=== PATIENT | male | born 1960 | race African-American/Black ===

== ENCOUNTER 2017-04-19 13:56 | Inpatient (IN) | payer MEDICARE, OTHER ==
[~2017-04-19] VITALS: Ht 177.8 cm; Wt 81.6 kg
[~2017-04-19 13:56] MED LIST: ASPIRIN81 MG ORAL; BENZTROPINE MESY2 MG ORAL; CARVEDILOL12.5 MG ORAL; CARVEDILOL25 MG ORAL; CRANBERRY450 M4 PO; DOCUSATE SODIU100 MG ORAL; FLOMAX0.4 MG ORAL; FOLIC ACID1 MG ORAL; FUROSEMIDE40 MG ORAL; HYDRALAZINE HCL50 MG ORAL; LEVAQUIN500 MG ORAL; LIPITOR20 MG ORAL; MILK OF MA400 MG/51 ORAL; MULTIVITAMINS1 EA13 ORAL; NORVASC5 MG ORAL; OMEPRAZOLE20 M3 ORAL; POTASSIUM CHLO10 ME2 PO; PRINIVIL20 MG ORAL; RENVELA0.8 GM ORAL; RENVELA800 MG ORAL; RISPERDAL2 MG ORAL; SENNA8.6 M2 PO; TYLENOL325 MG ORAL; UTI-STAT L3875 MG/31 PO; VANCOMYCIN1 GM/2502 IVPB; VITAMIN C500 M1 ORAL; ZOSYN 3.373.375 GM/1 IVPB; ZYPREXA10 MG ORAL; ZYPREXA5 MG ORAL
[2017-04-19 14:14] VITALS: BP 117/57
[2017-04-19] MEDS ORDERED: HEPARIN SO5000 UNIT2 SUBQ (14:14)
[2017-04-19] MEDS ORDERED: ZANTAC150 MG ORAL (14:14)
--- NOTE | 2017-04-19 14:39 | Emergency Room Report ---
History of Present Illness General Chief Complaint: Male Urogenital Problems Source: Patient Present Illness HPI [id number] sent from SNF for "urinary incontinence." Patient known schizophrenic, not providing additional HPI, mumbling History of urinary incontinence, sepsis PMD Zarrabi states unable to urinate, unable to place conde at SNF Allergies: Coded Allergies: No Known Allergies (Unverified , 01/28/15) Patient History Past Medical History: see triage record, old chart reviewed Past Surgical History: none, unable to obtain Pertinent Family History: none, unable to obtain Social History: Denies: alcohol use, drug use, smoking Immunizations: UTD Reviewed Nursing Documentation: PMH: Agreed, PSxH: Agreed Nursing Documentation-PMH Past Medical History: No History, Except For Hx Cardiac Problems: Yes - hyperlipidemia, heart failure, cardiomyopathy Hx Hypertension: Yes Hx COPD: Yes Hx Cancer: No Hx Gastrointestinal Problems: Yes - liver cirrhosis Hx Neurological Problems: Yes - encephalopathy Hx Cerebrovascular Accident: Yes Hx Dysphasia: Yes Review of Systems All Other Systems: negative except mentioned in HPI Physical Exam Vital Signs Date Time Temp Pulse Resp B/P Pulse Ox O2 Delivery O2 Flow Rate FiO2 04/19/17 13:50 98.2 61 18 117/57 98 Room Air Sp02 EP Interpretation: reviewed, normal General Appearance: normal inspection, well appearing, no apparent distress, alert, GCS 15, non-toxic Head: normocephalic, atraumatic Eyes: bilateral eye EOMI, bilateral eye PERRL ENT: normal ENT inspection, hearing grossly normal, normal voice Neck: normal inspection, full range of motion, supple, no bony tend Respiratory: normal inspection, lungs clear, normal breath sounds, no respiratory distress, no retraction, no wheezing Cardiovascular #1: regular rate, rhythm, no edema Gastrointestinal: normal inspection Genitourinary: no CVA tenderness Musculoskeletal: normal inspection, back normal, normal range of motion, Radha' s Sign negative Neurologic: normal inspection, alert, oriented x3, responsive, 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 nml as tested, motor strength/tone normal, speech normal Psychiatric: normal inspection, judgement/insight normal, mood/affect normal Skin: normal inspection, normal color, no rash Medical Decision Making Diagnostic Impression: Primary Impression: Dysuria Additional Impressions: UTI (urinary tract infection) Qualified Codes: N30.01 - Acute cystitis with hematuria Incontinence Qualified Codes: R32 - Unspecified urinary incontinence BPH (benign prostatic hyperplasia) Qualified Codes: N40.1 - Benign prostatic hyperplasia with lower urinary tract symptoms; R39.14 - Feeling of incomplete bladder emptying ER Course Dysuria/UTI with known BPH We cant pass Conde here either Patient had urine collected, grossly infected Empiric Abx given Blood, Urine Cx pending No leuks. Afebrile. VS otherwise stable Not systemically ill Dr Barr requesting admit, med/surg Needs Urology Cx for conde placement for BPH EKG Diagnostic Results Rate: normal Rhythm: NSR ST Segments: no acute changes ASA given to the pt in ED: No Rhythm Strip Diag. Results EP Interpretation: yes Rate: 57 Rhythm: NSR, no PVC's, no ectopy Last Vital Signs Date Time Temp Pulse Resp B/P Pulse Ox O2 Delivery O2 Flow Rate FiO2 04/19/17 14:14 98.2 61 18 117/57 98 Room Air Status: improved Disposition: HOME, SELF-CARE Condition: Serious Referrals: ROWENA BARR (PCP) RICKY PENNINGTON M.D. Apr 19, 2017 14:39
[2017-04-19 14:47] LABS: APPEARANCE,URINE SLIGHTLY CLOUDY; KETONES,URINE NEGATIVE (NEGATIVE); LEUKOCYTE ESTERASE ,URINE 3+ (NEGATIVE); NITRITE,URINE POSITIVE (NEGATIVE); PH,URINE 7 (4.5-8.0); PROTEIN,URINE 1+ (NEGATIVE); UROBILINOGEN,URINE NORMAL MG/DL (0.0-1.0)
[2017-04-19 14:49] LABS: EOSINOPHILS % (AUTO) 7.7 % (0.0-3.0); LYMPHOCYTES % (AUTO) 44.2 % (20.0-45.0); MEAN CORPUSCULAR HGB CONC 32.3 G/DL (32.0-36.0); MEAN CORPUSCULAR VOLUME 93 FL (80-99); MEAN PLATELET VOLUME 6.1 FL (6.5-10.1); NEUTROPHILS % (AUTO) 37.6 % (45.0-75.0); PLATELET COUNT 262 K/UL (150-450); RED BLOOD COUNT 3.94 M/UL (4.70-6.10); RED CELL DISTRIBUTION WIDTH 12.2 % (11.6-14.8); WHITE BLOOD COUNT 3.5 K/UL (4.8-10.8)
[2017-04-19 14:50] LABS: BASOPHILS % (AUTO) 1.5 % (0.0-2.0)
[2017-04-19 14:55] LABS: BACTERIA,URINE MODERATE /HPF; RBC,URINE 0-2 /HPF (0 - 0); SQUAMOUS EPITHELIAL CELL,UR FEW /LPF (NONE/OCC)
[2017-04-19 15:01] LABS: ALANINE AMINOTRANSFERASE 13 U/L (3-41); ANION GAP 9 (5-15); ASPARTATE AMINO TRANSFERASE 11 U/L (5-40); CALCIUM 11.1 mg/dL (8.6-10.2); CARBON DIOXIDE 30 mEQ/L (20-30); CHLORIDE 100 mEQ/L (98-107); CREATININE 1.2 mg/dL (0.7-1.2); GLOMERULAR FILTRATION RATE > 60 mL/min (>60); HEMOLYSIS 3; POTASSIUM 4.4 mEQ/L (3.4-4.9); SODIUM 139 mEQ/L (135-145); TOTAL PROTEIN 8.2 g/dL (6.6-8.7)
[2017-04-19 15:11] LABS: CKMB 1.8 ng/mL (< 6.7)
[2017-04-19 15:15] VITALS: BP 125/76
[2017-04-19] MEDS ORDERED: Piperacillin/Tazobactam 3.375 GM in NS 110 ML IVPB ONE (15:15)
[2017-04-19] MEDS ORDERED: Zosyn 3.375gm inj ONE (15:25)
[2017-04-19] MEDS ORDERED: Miralax 17gm pkt ORAL PRN (15:30)
[2017-04-19] MEDS ORDERED: DuoNeb 0.5-3(2.5)mg/3ml neb HHN PRN (15:30)
[2017-04-19] MEDS ORDERED: Morphine Sulfate 2mg/ml Inj IVP PRN (15:30)
[2017-04-19] MEDS ORDERED: Nitroglycerin Subl 0.4mg tab (Bottle Of 25) SL PRN (15:45)
[2017-04-19] MEDS ORDERED: Vancomycin 1.5 GM/D5W 250ML IVPB ONE ×2 (16:00→18:00)
[2017-04-19 16:15] VITALS: BP 120/66
--- NOTE | 2017-04-19 16:20 | Diagnostic Imaging Report ---
Indication: SOB Technique: One view of the chest Comparison: none Findings: Lungs and pleural spaces are clear. Heart size is borderline enlarged . Previous demonstrated right perihilar infiltrate is no longer evident Impression: No acute process
--- NOTE | 2017-04-19 16:59 | Diagnostic Imaging Report ---
Indication: PAIN flank pain, elevated renal function tests Technique: Grayscale and duplex images of the kidneys, retroperitoneum, and bladder were obtained. Comparison:None Findings: Right kidney measures 10.7 cm in length. Left kidney measures 12.6 cm in length. Both kidneys demonstrate increased echogenicity. There is mild hydronephrosis bilaterally. There are bilateral renal cysts. Normal inferior vena cava. Bladder is thickwalled and somewhat trabeculated. Impression: Mild bilateral hydronephrosis, etiology not demonstrated Bilateral echogenic kidneys, consistent with medical renal disease Somewhat thickwalled trabeculated bladder, may indicate chronic bladder outlet obstruction Incidental finding of bilateral renal cysts.
[2017-04-19 17:15] VITALS: BP 117/80
--- NOTE | 2017-04-19 18:58 | History and Physical ---
History of Present Illness General Date patient seen: Apr 19, 2017 Reason for Hospitalization: Male Urogenital Problems Present Illness HPI 57 year old male with hx of CVA, schizophrenia, halfway resident, [facility] for evaluation of dysuria and hematuria. Staff at the facility were not able to put a conde and she had hematuria. pt cant give any history and all information is obtained from the chart. Allergies: Coded Allergies: No Known Allergies (Unverified , 01/28/15) Medication History Scheduled Ascorbic Acid* (Vitamin C*), 500 MG ORAL DAILY, (Reported) Benztropine Mesylate* (Benztropine Mesylate*), 2 MG ORAL BID, (Reported) Carvedilol* (Carvedilol*), 25 MG ORAL EVERY 12 HOURS, (Reported) Cran/Vitc/Mannose/Inulin/Brom (Uti-Stat Liquid), 3,875 MG PO BID, (Reported) Cranberry Fruit Concentrate (Cranberry), 450 MG PO Q12HR, (Reported) Docusate Sodium* (Docusate Sodium*), 100 MG ORAL TWICE A DAY, (Reported) Folic Acid* (Folic Acid*), 1 MG ORAL DAILY, (Reported) Heparin Sod (Porcine) (Heparin Sodium*), 5,000 UNITS SUBQ EVERY 12 HOURS, ( Reported) Hydralazine Hcl* (Hydralazine Hcl*), 50 MG ORAL EVERY 6 HOURS, (Reported) Levofloxacin* (Levaquin*), 500 MG ORAL DAILY Magnesium Hydroxide* (Milk Of Magnesia*), 30 ML ORAL bed, (Reported) Multivitamin with Minerals (Multivitamins with Minerals), 1 TAB ORAL DAILY, ( Reported) Olanzapine* (Zyprexa*), 5 MG ORAL DAILY, (Reported) Omeprazole (Omeprazole), 20 MG ORAL DAILY, (Reported) Ocwabnomcggl-Lfmv-Ctrizuis,Iso (Zosyn 3.375 Gm Pre Mix-Bag), 3.375 GM IVPB EVERY 8 HOURS Ranitidine Hcl* (Zantac*), 150 MG ORAL DAILY, (Reported) Sennosides (Senna), 8.6 MG PO QHS, (Reported) Sevelamer Carbonate (Renvela), 800 MG ORAL QHS, (Reported) Tamsulosin HCl (Flomax), 0.4 MG ORAL DAILY Vancomycin Hcl/D5w (Vancomycin-D5w 1 G/250 Ml), 1 GM IVPB Q24H Scheduled PRN Acetaminophen (Tylenol), 650 MG ORAL Q6H PRN for For Pain, (Reported) Patient History Healthcare decision maker N Resuscitation status Advanced Directive on File Past Medical/Surgical History Past Medical/Surgical History: (1) Incontinence (2) Cerebrovascular accident, old (3) Liver cirrhosis Review of Systems All Other Systems: negative except mentioned in HPI Physical Exam General Appearance: no apparent distress Lines, tubes and drains: central line, PICC Neck: non-tender, normal alignment Respiratory/Chest: chest wall non-tender, lungs clear Breasts: no masses Cardiovascular/Chest: normal peripheral pulses Abdomen: normal bowel sounds, non tender Genitourinary/Rectal: normal genital exam Last 24 Hour Vital Signs Date Time Temp Pulse Resp B/P Pulse Ox O2 Delivery O2 Flow Rate FiO2 04/19/17 17:23 98.2 60 18 117/80 100 Room Air 04/19/17 17:15 60 18 117/80 100 Room Air 04/19/17 16:15 58 14 120/66 100 Room Air 04/19/17 15:15 57 13 125/76 100 Room Air 04/19/17 14:14 98.2 61 18 117/57 98 Room Air 04/19/17 13:50 98.2 61 18 117/57 98 Room Air Laboratory Tests Test 04/19/17 14:30 White Blood Count 3.5 K/UL (4.8-10.8) L Red Blood Count 3.94 M/UL (4.70-6.10) L Hemoglobin 11.8 G/DL (14.2-18.0) L Hematocrit 36.5 % (42.0-52.0) L Mean Corpuscular Volume 93 FL (80-99) Mean Corpuscular Hemoglobin 30.0 PG (27.0-31.0) Mean Corpuscular Hemoglobin Concent 32.3 G/DL (32.0-36.0) Red Cell Distribution Width 12.2 % (11.6-14.8) Platelet Count 262 K/UL (150-450) Mean Platelet Volume 6.1 FL (6.5-10.1) L Neutrophils (%) (Auto) 37.6 % (45.0-75.0) L Lymphocytes (%) (Auto) 44.2 % (20.0-45.0) Monocytes (%) (Auto) 9.0 % (1.0-10.0) Eosinophils (%) (Auto) 7.7 % (0.0-3.0) H Basophils (%) (Auto) 1.5 % (0.0-2.0) Urine Color Yellow Urine Appearance Slightly cloudy Urine pH 7 (4.5-8.0) Urine Specific [place] 1.010 (1.005-1.035) Urine Protein 1+ (NEGATIVE) H Urine Glucose (UA) Negative (NEGATIVE) Urine Ketones Negative (NEGATIVE) Urine Occult Blood Negative (NEGATIVE) Urine Nitrite Positive (NEGATIVE) H Urine Bilirubin Negative (NEGATIVE) Urine Urobilinogen Normal MG/DL (0.0-1.0) Urine Leukocyte Esterase 3+ (NEGATIVE) H Urine RBC 0-2 /HPF (0 - 0) H Urine WBC 10-15 /HPF (0 - 0) H Urine Squamous Epithelial Cells Few /LPF (NONE/OCC) Urine Bacteria Moderate /HPF (NONE) H Sodium Level 139 mEQ/L (135-145) Potassium Level 4.4 mEQ/L (3.4-4.9) Chloride Level 100 mEQ/L (98-107) Carbon Dioxide Level 30 mEQ/L (20-30) Anion Gap 9 (5-15) Blood Urea Nitrogen 20 mg/dL (7-23) Creatinine 1.2 mg/dL (0.7-1.2) Estimat Glomerular Filtration Rate > 60 mL/min (>60) Glucose Level 79 mg/dL (74-106) Calcium Level 11.1 mg/dL (8.6-10.2) H Total Bilirubin 0.3 mg/dL (0.0-1.2) Aspartate Amino Transf (AST/SGOT) 11 U/L (5-40) Alanine Aminotransferase (ALT/SGPT) 13 U/L (3-41) Alkaline Phosphatase 60 U/L (40-129) Creatine Kinase MB 1.8 ng/mL (< 6.7) Total Protein 8.2 g/dL (6.6-8.7) Albumin 4.1 g/dL (3.5-5.2) Globulin 4.1 g/dL Albumin/Globulin Ratio 1.0 (1.0-2.7) Height (Feet): 5 Height (Inches): 10.00 Weight (Pounds): 180 Medications Current Medications Medications (Trade) Dose Ordered Sig/Olivier Route PRN Reason Start Time Stop Time Status Last Admin Dose Admin Acetaminophen (Tylenol) 650 mg Q4H PRN ORAL T>100.5 04/19/17 15:30 05/19/17 15:29 Albuterol/ Ipratropium 3 ml 3 ml Q4H PRN HHN Shortness of Breath 04/19/17 15:30 04/24/17 15:29 Carvedilol (Coreg) 25 mg EVERY 12 HOURS ORAL 04/19/17 21:00 05/19/17 20:59 Cefepime HCl 2 gm/ Dextrose 110 ml @ 220 mls/hr Q12HR@0800,2000 IV 04/19/17 20:00 04/26/17 19:59 Heparin Sodium (Porcine) (Heparin 5000 units/ml) 5,000 units EVERY 12 HOURS SUBQ 04/19/17 21:00 05/19/17 20:59 Morphine Sulfate (Morphine Sulfate) 2 mg Q4H PRN IVP Moderate Pain (Pain Scale 4-6) 04/19/17 15:30 04/26/17 15:29 Nitroglycerin (Ntg) 0.4 mg Q5MIN X 3 DOSES PRN SL Prn Chest Pain 04/19/17 15:45 05/19/17 15:44 Olanzapine (ZyPREXA) 5 mg DAILY ORAL 04/20/17 09:00 05/20/17 08:59 Ondansetron HCl (Zofran) 4 mg Q6H PRN IVP Nausea & Vomiting 04/19/17 15:30 05/19/17 15:29 Phenazopyridine HCl (Pyridium) 100 mg DAILYPRN PRN ORAL dysuria 04/19/17 15:30 05/19/17 15:29 Polyethylene Glycol (Miralax) 17 gm DAILYPRN PRN ORAL Constipation 04/19/17 15:30 05/19/17 15:29 Sennosides (Senokot) 8.6 mg QHS ORAL 04/19/17 21:00 05/19/17 20:59 Tamsulosin HCl (Flomax) 0.4 mg DAILY ORAL 04/20/17 09:00 05/20/17 08:59 Temazepam (Restoril) 15 mg HSPRN PRN ORAL Insomnia 04/19/17 21:00 04/26/17 20:59 Vancomycin HCl 1 ea 1 ea DAILY PRN MISC . 04/19/17 15:45 05/19/17 15:44 Vancomycin HCl/ Dextrose (Vancomycin 1.5gm/D5W 250ml) 250 ml @ 125 mls/hr ONCE ONCE IVPB 04/19/17 18:00 04/19/17 19:59 Vancomycin HCl/ Dextrose (Vancomycin/D5W) 275 ml @ 183.3 mls/ hr Q12HR@0600,1800 IVPB 04/20/17 06:00 04/25/17 05:59 Assessment/Plan Problem List: (1) Dysuria ICD Codes: R30.0 - Dysuria SNOMED: 27442147 (2) Cerebrovascular accident, old ICD Codes: Z86.73 - Personal history of transient ischemic attack (TIA), and cerebral infarction without residual deficits SNOMED: 859237733 (3) BPH (benign prostatic hyperplasia) ICD Codes: N40.0 - Benign prostatic hyperplasia without lower urinary tract symptoms SNOMED: 101855524, [id number] Qualifiers: Qualified Codes: N40.1 - Benign prostatic hyperplasia with lower urinary tract symptoms; R39.14 - Feeling of incomplete bladder emptying (4) Liver cirrhosis ICD Codes: K74.60 - Liver cirrhosis SNOMED: 28790832 Assessment/Plan Urology evaluation symptomatic treatment check urine ROWENA ALVA Apr 19, 2017 18:58
[2017-04-19 20:00] VITALS: BP 135/57
[2017-04-19] MEDS: Carvedilol 25mg Tab ORAL SCH (21:49)
[2017-04-19] MEDS: Cefepime HCl 2 GM in D5W 110 ML IV SCH (21:50)
[2017-04-19] MEDS: Heparin 5000 units/ml inj SUBQ SCH (21:51)
--- NOTE | 2017-04-19 23:00 | Consultation ---
DATE OF CONSULTATION: 04/19/2017 UROLOGY CONSULTATION ATTENDING/CONSULTING PHYSICIAN: Darrian Barr M.D. CHIEF COMPLAINT/HISTORY OF PRESENT ILLNESS: I was asked by Dr. Barr to evaluate this 57-year-old gentleman regarding history of urinary incontinence as well as inability of staff to pass a catheter. Briefly, the patient was sent from a care home facility for urinary incontinence. Apparently, he had a history of the same and staff was unable to pass a catheter at his SNF. As such, he was transferred here and I was asked to evaluate the patient. On evaluation here, apparently the patient had evidence of urinary tract infection, he was admitted, and placed on antibiotics. The patient is schizophrenic and cannot provide any useful information. Most of the information is gathered from the chart. PAST MEDICAL HISTORY: 1. Schizophrenia. 2. Urinary incontinence. PAST SURGICAL HISTORY: Unknown. MEDICATIONS: Please see the chart for current medications and administration details. Briefly, the patient is receiving Flomax, vancomycin, and cefepime among other medications. ALLERGIES: No known drug allergies. SOCIAL HISTORY: Unobtainable. FAMILY HISTORY: Unobtainable. REVIEW OF SYSTEMS: A 12-system review of systems cannot be done as the patient cannot provide any useful information. PHYSICAL EXAMINATION: GENERAL: The patient is an older gentleman, awake and alert, but not apparently oriented, in no obvious distress. HEENT: NC/AT. EOMI. Oropharynx is clear. NECK: Supple. Full range of motion. CHEST: Within normal limits. ABDOMEN: Soft, nontender, and nondistended. EXTREMITIES: Warm and well perfused. No cyanosis, clubbing, or edema. BACK: No CVA tenderness to percussion. NEUROLOGIC: Grossly nonfocal outside of inability to interact appropriately. GENITOURINARY: Reveals circumcised male phallus with bilateral descended testes and cord structures. There is no masses or tenderness to palpation. LABORATORY DATA: White blood cell count 3.5, hematocrit 36.5, and platelets 262,000. PT 11.1, INR 1.1, and PTT 29. Sodium 139, potassium 4.4, chloride 100, bicarbonate 30, BUN 20, creatinine 1.2, glucose 79, and calcium is 11.1. LFTs within normal limits. Urinalysis, specific gravity 1.010 and pH 7.0. Dip test notable for positive nitrites, 1+ protein, and 3+ leukocyte esterase. Microanalysis, 10 to 15 white blood cells per high-power field and moderate bacteria seen. Urine culture is pending. DIAGNOSTIC IMAGING: Renal ultrasound with mild bilateral hydronephrosis. The bladder is thick-walled and somewhat trabeculated, which may indicate chronic outlet obstruction. There are bilateral renal cysts seen. Chest x-ray, no acute process. ASSESSMENT AND PLAN: In summary, the patient is a 57-year-old schizophrenic gentleman with a history of urinary incontinence. He was sent for evaluation of the same here. Apparently, urinalysis here reveals evidence of urinary tract infection. His creatinine is normal as are his other laboratories. Diagnostic imaging with ultrasound reveals mild bilateral hydronephrosis and a thick-walled bladder consistent with a possible bladder outlet obstruction. Physical exam is essentially unremarkable outside of schizophrenia. Today at the bedside, I attempted multiple times to pass a 14 and 16-Vietnamese coude catheter into the patient's bladder, but met with resistance in the bulbar urethra consistent with a possible stricture. Multiple attempts at passing a filiform were also met with resistance in the same area and I was unsuccessful in gaining entry into the bladder. It appears that the patient has a urethral stricture, which likely is longstanding. This has likely resulted in a urinary tract infection and as a result of the irritation from an infection, incontinence. The patient's kidney function is within normal limits and the bladder is thick-walled consistent with straining against a stricture. As I was unable to gain entry into the bladder, our next options would include cystoscopy or suprapubic catheter placement. Given that the patient is able to urinate and that he can be treated with antibiotics and there is no evidence of massive retention or renal insufficiency from this process, I will defer this for the moment and allow placement of a condom catheter. We should continue antibiotics. Once the patient is discharged, we can arrange for outpatient cystoscopy to evaluate his stricture and to formulate a plan from there. Doing so would entail obtaining consent from whoever the patient's [id number] is. Thank you for allowing me to participate in the care of this unfortunate gentleman. Please do not hesitate to contact me for any questions that you may further have regarding his care. I will be happy to see him with you as needed. Americo Betancourt M.D. DR: MELANIE JOB#: [id number] CC:
[2017-04-20] VITALS: BP 124/63
[2017-04-20 04:00] VITALS: BP 108/63
[2017-04-20] MEDS ORDERED: Vancomycin 1 GM in D5W 275 ML IVPB SCH (06:00)
[2017-04-20] MEDS: Cefepime HCl 2 GM in D5W 110 ML IV SCH ×2 (08:34→19:58)
[2017-04-20] MEDS: Tamsulosin 0.4mg cap ORAL SCH (08:38)
[2017-04-20] MEDS: Carvedilol 25mg Tab ORAL SCH ×2 (08:42→19:59)
[2017-04-20 08:57] VITALS: BP 125/65
[2017-04-20] MEDS: Heparin 5000 units/ml inj SUBQ SCH ×2 (09:52→20:00)
[2017-04-20 12:00] VITALS: BP 126/81
--- NOTE | 2017-04-20 13:08 | Infectious Diseases Prog Note ---
Assessment/Plan Assessment/Plan Id consult dictated # [id number] Subjective Allergies: Coded Allergies: No Known Allergies (Unverified , 01/28/15) Objective Vital Signs Last 24 Hour Vital Signs Date Time Temp Pulse Resp B/P Pulse Ox O2 Delivery O2 Flow Rate FiO2 04/20/17 08:57 97.8 63 18 125/65 100 Room Air 04/20/17 08:42 63 108/63 04/20/17 04:00 97.5 63 20 108/63 100 Room Air 04/20/17 00:00 97.7 66 20 124/63 99 Room Air 04/19/17 21:49 73 135/57 04/19/17 20:00 97.2 73 20 135/57 98 Room Air 04/19/17 17:23 98.2 60 18 117/80 100 Room Air 04/19/17 17:15 60 18 117/80 100 Room Air 04/19/17 16:15 58 14 120/66 100 Room Air 04/19/17 15:15 57 13 125/76 100 Room Air 04/19/17 14:14 98.2 61 18 117/57 98 Room Air 04/19/17 13:50 98.2 61 18 117/57 98 Room Air Height (Feet): 5 Height (Inches): 10.00 Weight (Pounds): 180 Microbiology Date/Time Source Procedure Growth Status 04/19/17 14:30 Urine,Clean Catch Urine Culture - Preliminary Gram Negative Bacillus 1 Resulted Laboratory Tests Test 04/19/17 14:30 White Blood Count 3.5 K/UL (4.8-10.8) L Red Blood Count 3.94 M/UL (4.70-6.10) L Hemoglobin 11.8 G/DL (14.2-18.0) L Hematocrit 36.5 % (42.0-52.0) L Mean Corpuscular Volume 93 FL (80-99) Mean Corpuscular Hemoglobin 30.0 PG (27.0-31.0) Mean Corpuscular Hemoglobin Concent 32.3 G/DL (32.0-36.0) Red Cell Distribution Width 12.2 % (11.6-14.8) Platelet Count 262 K/UL (150-450) Mean Platelet Volume 6.1 FL (6.5-10.1) L Neutrophils (%) (Auto) 37.6 % (45.0-75.0) L Lymphocytes (%) (Auto) 44.2 % (20.0-45.0) Monocytes (%) (Auto) 9.0 % (1.0-10.0) Eosinophils (%) (Auto) 7.7 % (0.0-3.0) H Basophils (%) (Auto) 1.5 % (0.0-2.0) Urine Color Yellow Urine Appearance Slightly cloudy Urine pH 7 (4.5-8.0) Urine Specific [place] 1.010 (1.005-1.035) Urine Protein 1+ (NEGATIVE) H Urine Glucose (UA) Negative (NEGATIVE) Urine Ketones Negative (NEGATIVE) Urine Occult Blood Negative (NEGATIVE) Urine Nitrite Positive (NEGATIVE) H Urine Bilirubin Negative (NEGATIVE) Urine Urobilinogen Normal MG/DL (0.0-1.0) Urine Leukocyte Esterase 3+ (NEGATIVE) H Urine RBC 0-2 /HPF (0 - 0) H Urine WBC 10-15 /HPF (0 - 0) H Urine Squamous Epithelial Cells Few /LPF (NONE/OCC) Urine Bacteria Moderate /HPF (NONE) H Sodium Level 139 mEQ/L (135-145) Potassium Level 4.4 mEQ/L (3.4-4.9) Chloride Level 100 mEQ/L (98-107) Carbon Dioxide Level 30 mEQ/L (20-30) Anion Gap 9 (5-15) Blood Urea Nitrogen 20 mg/dL (7-23) Creatinine 1.2 mg/dL (0.7-1.2) Estimat Glomerular Filtration Rate > 60 mL/min (>60) Glucose Level 79 mg/dL (74-106) Calcium Level 11.1 mg/dL (8.6-10.2) H Total Bilirubin 0.3 mg/dL (0.0-1.2) Aspartate Amino Transf (AST/SGOT) 11 U/L (5-40) Alanine Aminotransferase (ALT/SGPT) 13 U/L (3-41) Alkaline Phosphatase 60 U/L (40-129) Creatine Kinase MB 1.8 ng/mL (< 6.7) Total Protein 8.2 g/dL (6.6-8.7) Albumin 4.1 g/dL (3.5-5.2) Globulin 4.1 g/dL Albumin/Globulin Ratio 1.0 (1.0-2.7) Current Medications Medications (Trade) Dose Ordered Sig/Olivier Route PRN Reason Start Time Stop Time Status Last Admin Dose Admin Acetaminophen (Tylenol) 650 mg Q4H PRN ORAL T>100.5 04/19/17 15:30 05/19/17 15:29 Albuterol/ Ipratropium 3 ml 3 ml Q4H PRN HHN Shortness of Breath 04/19/17 15:30 04/24/17 15:29 Carvedilol (Coreg) 25 mg EVERY 12 HOURS ORAL 04/19/17 21:00 05/19/17 20:59 04/19/17 21:49 Cefepime HCl 2 gm/ Dextrose 110 ml @ 220 mls/hr Q12HR@0800,2000 IV 04/19/17 20:00 04/26/17 19:59 04/20/17 08:34 Heparin Sodium (Porcine) (Heparin 5000 units/ml) 5,000 units EVERY 12 HOURS SUBQ 04/19/17 21:00 05/19/17 20:59 04/20/17 09:52 Morphine Sulfate (Morphine Sulfate) 2 mg Q4H PRN IVP Moderate Pain (Pain Scale 4-6) 04/19/17 15:30 04/26/17 15:29 Nitroglycerin (Ntg) 0.4 mg Q5MIN X 3 DOSES PRN SL Prn Chest Pain 04/19/17 15:45 05/19/17 15:44 Olanzapine (ZyPREXA) 5 mg DAILY ORAL 04/20/17 09:00 05/20/17 08:59 04/20/17 08:37 Ondansetron HCl (Zofran) 4 mg Q6H PRN IVP Nausea & Vomiting 04/19/17 15:30 05/19/17 15:29 Phenazopyridine HCl (Pyridium) 100 mg DAILYPRN PRN ORAL dysuria 04/19/17 15:30 05/19/17 15:29 Polyethylene Glycol (Miralax) 17 gm DAILYPRN PRN ORAL Constipation 04/19/17 15:30 05/19/17 15:29 Sennosides (Senokot) 8.6 mg QHS ORAL 04/19/17 21:00 05/19/17 20:59 04/19/17 21:49 Tamsulosin HCl (Flomax) 0.4 mg DAILY ORAL 04/20/17 09:00 05/20/17 08:59 04/20/17 08:38 Temazepam (Restoril) 15 mg HSPRN PRN ORAL Insomnia 04/19/17 21:00 04/26/17 20:59 Vancomycin HCl (Vanco rx to dose) 1 ea DAILY PRN MISC . 04/19/17 15:45 05/19/17 15:44 Vancomycin HCl/ Dextrose (Vancomycin/D5W) 275 ml @ 183.3 mls/ hr Q12HR@0600,1800 IVPB 04/20/17 06:00 04/25/17 05:59 04/20/17 06:12 DUNG BURCIAGA Apr 20, 2017 13:07
--- NOTE | 2017-04-20 15:41 | Pulmonology Progress Note ---
Assessment/Plan Problems: (1) Dysuria (2) Cerebrovascular accident, old (3) BPH (benign prostatic hyperplasia) (4) Liver cirrhosis Assessment/Plan continue abx check cultures urology consult appreciated Subjective ROS Limited/Unobtainable: No Constitutional: Reports: no symptoms HEENT: Repors: no symptoms Respiratory: Reports: no symptoms Allergies: Coded Allergies: No Known Allergies (Unverified , 01/28/15) Objective Last 24 Hour Vital Signs Date Time Temp Pulse Resp B/P Pulse Ox O2 Delivery O2 Flow Rate FiO2 04/20/17 12:00 97.5 59 18 126/81 97 Room Air 04/20/17 08:57 97.8 63 18 125/65 100 Room Air 04/20/17 08:42 63 108/63 04/20/17 04:00 97.5 63 20 108/63 100 Room Air 04/20/17 00:00 97.7 66 20 124/63 99 Room Air 04/19/17 21:49 73 135/57 04/19/17 20:00 97.2 73 20 135/57 98 Room Air 04/19/17 17:23 98.2 60 18 117/80 100 Room Air 04/19/17 17:15 60 18 117/80 100 Room Air 04/19/17 16:15 58 14 120/66 100 Room Air Intake and Output 04/19/17 04/20/17 19:00 07:00 Intake Total 110 ml 220 ml Output Total 500 ml Balance -390 ml 220 ml Intake IV Total 110 ml 220 ml Output Urine Total 500 ml # Voids 3 # Bowel Movements 2 General Appearance: WD/WN HEENT: normocephalic, atraumatic Respiratory/Chest: chest wall non-tender, lungs clear Cardiovascular: normal peripheral pulses, normal rate Abdomen: normal bowel sounds, soft, non tender Genitourinary: normal external genitalia Skin: no rash 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 Lymphatic: no neck adenopathy Microbiology Date/Time Source Procedure Growth Status 04/19/17 14:30 Urine,Clean Catch Urine Culture - Preliminary Gram Negative Bacillus 1 Resulted Current Medications Medications (Trade) Dose Ordered Sig/Olivier Route PRN Reason Start Time Stop Time Status Last Admin Dose Admin Acetaminophen (Tylenol) 650 mg Q4H PRN ORAL T>100.5 04/19/17 15:30 05/19/17 15:29 Albuterol/ Ipratropium 3 ml 3 ml Q4H PRN HHN Shortness of Breath 04/19/17 15:30 04/24/17 15:29 Carvedilol (Coreg) 25 mg EVERY 12 HOURS ORAL 04/19/17 21:00 05/19/17 20:59 04/19/17 21:49 Cefepime HCl/ Dextrose (Maxipime/D5W) 110 ml @ 220 mls/hr Q12HR@0800,2000 IV 04/19/17 20:00 04/26/17 19:59 04/20/17 08:34 Heparin Sodium (Porcine) (Heparin 5000 units/ml) 5,000 units EVERY 12 HOURS SUBQ 04/19/17 21:00 05/19/17 20:59 04/20/17 09:52 Morphine Sulfate (Morphine Sulfate) 2 mg Q4H PRN IVP Moderate Pain (Pain Scale 4-6) 04/19/17 15:30 04/26/17 15:29 Nitroglycerin (Ntg) 0.4 mg Q5MIN X 3 DOSES PRN SL Prn Chest Pain 04/19/17 15:45 05/19/17 15:44 Olanzapine (ZyPREXA) 5 mg DAILY ORAL 04/20/17 09:00 05/20/17 08:59 04/20/17 08:37 Ondansetron HCl (Zofran) 4 mg Q6H PRN IVP Nausea & Vomiting 04/19/17 15:30 05/19/17 15:29 Phenazopyridine HCl (Pyridium) 100 mg DAILYPRN PRN ORAL dysuria 04/19/17 15:30 05/19/17 15:29 Polyethylene Glycol (Miralax) 17 gm DAILYPRN PRN ORAL Constipation 04/19/17 15:30 05/19/17 15:29 Sennosides (Senokot) 8.6 mg QHS ORAL 04/19/17 21:00 05/19/17 20:59 04/19/17 21:49 Tamsulosin HCl (Flomax) 0.4 mg DAILY ORAL 04/20/17 09:00 05/20/17 08:59 04/20/17 08:38 Temazepam (Restoril) 15 mg HSPRN PRN ORAL Insomnia 04/19/17 21:00 04/26/17 20:59 ROWENA ALVA Apr 20, 2017 15:41
--- NOTE | 2017-04-20 16:49 | Cardiology Report ---
APPROVED REPORT EKG Measurement Heart [id number] Normal sinus rhythm Normal ECG
[2017-04-20 20:00] VITALS: BP 113/67
[2017-04-20 23:56] VITALS: BP 123/76
--- NOTE | 2017-04-21 | Consultation ---
DATE OF CONSULTATION: 04/20/2017 This consult is for coverage of Dr. Young. CONSULTING PHYSICIAN: Eze Dougherty M.D. PRIMARY ATTENDING PHYSICIAN: Darrian Barr M.D. REASON FOR CONSULT: UTI and cystitis. HISTORY OF PRESENT ILLNESS: This is a 57-year-old male [facility] because of urinary frequency and incontinence. The patient has schizophrenia, is not the source of history. PAST MEDICAL HISTORY: Significant for cardiomyopathy, CHF, COPD, erosive prostatic hypertrophy, hypertension, and schizophrenia. ALLERGIES: No known drug allergy. MEDICATIONS: Zyprexa, Flomax, vancomycin, carvedilol, Senokot, heparin, temazepam, cefepime, DuoNeb inhaler, morphine, MiraLax, Zofran, and phenazopyridine. SOCIAL HISTORY: [facility] resident with poor mental status. REVIEW OF SYSTEMS: Unobtainable. The patient was seen by urologist and Mccoy catheter was placed. PHYSICAL EXAMINATION: GENERAL APPEARANCE: The patient is in no acute distress. Awake and alert. Denies any pain. VITAL SIGNS: Temperature 97.8, pulse 63, and blood pressure 125/65. HEAD AND NECK: Mignon conjunctivae. HEART: S1 and S2 are regular. LUNGS: Clear. ABDOMEN: Soft and nontender. GENITOURINARY: Has Mccoy catheter. LABORATORY AND DIAGNOSTIC DATA: Sodium 139, potassium 4.4, chloride 100, bicarbonate 30. BUN 20, creatinine 1.2. Glucose 79. WBC 3.5, hemoglobin 11.8, hematocrit 36.5, and platelets 262,000. The patient had renal ultrasound that showed bilateral hydronephrosis that was marked and rule out thickened bladder wall. Urine culture growing gram-negative rods. Chest x-ray was negative. IMPRESSION: Urinary tract infection likely cystitis secondary to benign prostatic hypertrophy. The patient has mild bilateral hydronephrosis, schizophrenia, and history of chronic obstructive pulmonary disease. RECOMMENDATION: We will continue with cefepime. We will discontinue vancomycin. We will follow up urine culture. At the end of my exam, I thank Dr. Barr for involving me in the care of this patient. Eze Dougherty M.D. DR: EMLIY JOB#: [id number] CC:
--- NOTE | 2017-04-21 01:15 | Progress Note ---
DATE: 04/20/2017 UROLOGY PROGRESS NOTE SUBJECTIVE: No genitourinary events overnight. Still managing to void any condom catheter and no complaints of discomfort or retention. OBJECTIVE: GENERAL: Afebrile. VITAL SIGNS: Stable. ABDOMEN: Soft, nontender, and nondistended. EXTREMITIES: Normal perfused. No cyanosis, clubbing or edema. BACK: No CVA tenderness to percussion. GENITOURINARY: No significant changes. ASSESSMENT AND PLAN: 1. Urethral stricture with inability to pass catheter yesterday. Uncertain of duration or etiology of same. 2. Urinary tract infection being treated with cefepime and previously vancomycin, appears to be improving. Urine currently is clear and light yellow. 3. Okay for discharge from genitourinary standpoint, when otherwise stable. 4. We will attempt to arrange office follow up for cystoscopy to evaluate stricture, but will depend on availability of family or [id number] to agree to same. Americo Betancourt M.D. DR: SYEDA JOB#: [id number] CC:
[2017-04-21] MEDS: Cefepime HCl 2 GM in D5W 110 ML IV SCH (08:00)
[2017-04-21 08:05] VITALS: BP 122/64
[2017-04-21] MEDS: Carvedilol 25mg Tab ORAL SCH ×2 (08:29→20:22)
[2017-04-21] MEDS: Tamsulosin 0.4mg cap ORAL SCH (08:42)
[2017-04-21] MEDS: Heparin 5000 units/ml inj SUBQ SCH ×2 (08:48→20:29)
[2017-04-21 11:38] VITALS: BP 133/70
--- NOTE | 2017-04-21 13:21 | Infectious Diseases Prog Note ---
Assessment/Plan Assessment/Plan Assessment: Complicated E coli UTI. sensitive to beta lactams, resistant to fluoroquinolones and tmp/smx. chronic obstructrive uropathy, likely due to urethral stricture Mild b/l hydronephrosis, chronic leukopenia afebrile anemia, chronic schizophrenia, at baseline mentation hypercalcemia COPD RECOMMENDATION: --d/c cefepime (D#2) --Start ceftriaxone 1gm IV q24hr, D#2 of 14 --repeat CBC and chem panel now --mgmt of mild hypercalcemia --s/p urology evaluation, pending outpatient cystoscopy after completion of abx. --stable for discharge back to his facility on IV ceftriaxone through PIV from an ID standpoint. Subjective ROS Limited/Unobtainable: Yes Allergies: Coded Allergies: No Known Allergies (Unverified , 01/28/15) Subjective pulled off his condom catheter. Objective Vital Signs Last 24 Hour Vital Signs Date Time Temp Pulse Resp B/P Pulse Ox O2 Delivery O2 Flow Rate FiO2 04/21/17 11:38 99.1 73 21 133/70 100 Room Air 04/21/17 08:29 61 122/64 04/21/17 08:05 98.7 61 20 122/64 99 Room Air 04/21/17 07:50 62 18 Room Air 04/20/17 23:56 97.5 58 18 123/76 97 Room Air 04/20/17 20:00 97.6 60 18 113/67 96 Room Air 04/20/17 19:59 60 113/67 04/20/17 19:10 89 18 Room Air Height (Feet): 5 Height (Inches): 10.00 Weight (Pounds): 180 General Appearance: no acute distress HEENT: normocephalic, atraumatic, anicteric, no JVD Respiratory/Chest: lungs clear Abdomen: soft, non tender, no organomegaly, non distended Genitourinary: normal external genitalia, other - pulled off his condom catheter. clear urine in bag. Extremities: no edema, pedal pulses normal Skin: no rash Microbiology Date/Time Source Procedure Growth Status 04/20/17 06:15 Indwelling Cath Urine Culture - Preliminary NO GROWTH AFTER 24 HOURS Resulted 04/19/17 14:30 Urine,Clean Catch Urine Culture - Final Escherichia Coli Complete 04/19/17 17:30 Rectum VRE Culture - Final NO VANCOMYCIN RESISTANT ENTEROCOCCUS ... Complete Current Medications Medications (Trade) Dose Ordered Sig/Olivier Route PRN Reason Start Time Stop Time Status Last Admin Dose Admin Acetaminophen (Tylenol) 650 mg Q4H PRN ORAL T>100.5 04/19/17 15:30 05/19/17 15:29 Albuterol/ Ipratropium (DuoNeb 0.5-3(2.5)mg/3ml) 3 ml Q4H PRN HHN Shortness of Breath 04/19/17 15:30 04/24/17 15:29 Carvedilol (Coreg) 25 mg EVERY 12 HOURS ORAL 04/19/17 21:00 05/19/17 20:59 04/20/17 19:59 Heparin Sodium (Porcine) (Heparin 5000 units/ml) 5,000 units EVERY 12 HOURS SUBQ 04/19/17 21:00 05/19/17 20:59 04/21/17 08:48 Morphine Sulfate (Morphine Sulfate) 2 mg Q4H PRN IVP Moderate Pain (Pain Scale 4-6) 04/19/17 15:30 04/26/17 15:29 Nitroglycerin (Ntg) 0.4 mg Q5MIN X 3 DOSES PRN SL Prn Chest Pain 04/19/17 15:45 05/19/17 15:44 Olanzapine (ZyPREXA) 5 mg DAILY ORAL 04/20/17 09:00 05/20/17 08:59 04/21/17 08:42 Ondansetron HCl (Zofran) 4 mg Q6H PRN IVP Nausea & Vomiting 04/19/17 15:30 05/19/17 15:29 Phenazopyridine HCl (Pyridium) 100 mg DAILYPRN PRN ORAL dysuria 04/19/17 15:30 05/19/17 15:29 Polyethylene Glycol (Miralax) 17 gm DAILYPRN PRN ORAL Constipation 04/19/17 15:30 05/19/17 15:29 Sennosides (Senokot) 8.6 mg QHS ORAL 04/19/17 21:00 05/19/17 20:59 04/20/17 19:58 Tamsulosin HCl (Flomax) 0.4 mg DAILY ORAL 04/20/17 09:00 05/20/17 08:59 04/21/17 08:42 Temazepam (Restoril) 15 mg HSPRN PRN ORAL Insomnia 04/19/17 21:00 04/26/17 20:59 Abhishek Dukes M.D. Apr 21, 2017 13:21
[2017-04-21] MEDS ORDERED: ROCEPHIN 11 GM/50 ML IVPB (13:25)
[2017-04-21] MEDS ORDERED: cefTRIAXone 1 GM in D5W 55 ML IVPB SCH (15:00)
[2017-04-21 16:12] VITALS: BP 148/73
--- NOTE | 2017-04-21 20:08 | Pulmonology Progress Note ---
Assessment/Plan Problems: (1) Dysuria (2) Cerebrovascular accident, old (3) BPH (benign prostatic hyperplasia) (4) Liver cirrhosis Assessment/Plan continue abx check cultures urology consult appreciated dc planning in progress check labs in am Subjective ROS Limited/Unobtainable: No Constitutional: Reports: no symptoms HEENT: Repors: no symptoms Respiratory: Reports: no symptoms Allergies: Coded Allergies: No Known Allergies (Unverified , 01/28/15) Objective Last 24 Hour Vital Signs Date Time Temp Pulse Resp B/P Pulse Ox O2 Delivery O2 Flow Rate FiO2 04/21/17 16:12 97.7 57 18 148/73 98 Room Air 04/21/17 11:38 99.1 73 21 133/70 100 Room Air 04/21/17 08:29 61 122/64 04/21/17 08:05 98.7 61 20 122/64 99 Room Air 04/21/17 07:50 62 18 Room Air 04/20/17 23:56 97.5 58 18 123/76 97 Room Air Intake and Output 04/20/17 04/21/17 19:00 07:00 Intake Total 826.6 ml 220 ml Output Total 600 ml Balance 226.6 ml 220 ml Intake Oral 240 ml IV Total 586.6 ml 220 ml Output Urine Total 600 ml # Voids 6 # Bowel Movements 1 General Appearance: WD/WN HEENT: normocephalic, atraumatic Respiratory/Chest: chest wall non-tender, lungs clear Cardiovascular: normal peripheral pulses, normal rate Abdomen: normal bowel sounds, no organomegaly, no scars Microbiology Date/Time Source Procedure Growth Status 04/20/17 06:15 Indwelling Cath Urine Culture - Preliminary NO GROWTH AFTER 24 HOURS Resulted 04/19/17 14:30 Urine,Clean Catch Urine Culture - Final Escherichia Coli Complete 04/19/17 17:30 Rectum VRE Culture - Final NO VANCOMYCIN RESISTANT ENTEROCOCCUS ... Complete Current Medications Medications (Trade) Dose Ordered Sig/Olivier Route PRN Reason Start Time Stop Time Status Last Admin Dose Admin Acetaminophen (Tylenol) 650 mg Q4H PRN ORAL T>100.5 04/19/17 15:30 05/19/17 15:29 Albuterol/ Ipratropium (DuoNeb 0.5-3(2.5)mg/3ml) 3 ml Q4H PRN HHN Shortness of Breath 04/19/17 15:30 04/24/17 15:29 Carvedilol (Coreg) 25 mg EVERY 12 HOURS ORAL 04/19/17 21:00 05/19/17 20:59 04/20/17 19:59 Ceftriaxone Sodium/Dextrose (Rocephin/D5W) 55 ml @ 110 mls/hr Q24H IVPB 04/21/17 15:00 05/03/17 14:59 04/21/17 15:32 Heparin Sodium (Porcine) (Heparin 5000 units/ml) 5,000 units EVERY 12 HOURS SUBQ 04/19/17 21:00 05/19/17 20:59 04/21/17 08:48 Morphine Sulfate (Morphine Sulfate) 2 mg Q4H PRN IVP Moderate Pain (Pain Scale 4-6) 04/19/17 15:30 04/26/17 15:29 Nitroglycerin (Ntg) 0.4 mg Q5MIN X 3 DOSES PRN SL Prn Chest Pain 04/19/17 15:45 05/19/17 15:44 Olanzapine (ZyPREXA) 5 mg DAILY ORAL 04/20/17 09:00 05/20/17 08:59 04/21/17 08:42 Ondansetron HCl (Zofran) 4 mg Q6H PRN IVP Nausea & Vomiting 04/19/17 15:30 05/19/17 15:29 Phenazopyridine HCl 100 mg 100 mg DAILYPRN PRN ORAL dysuria 04/19/17 15:30 05/19/17 15:29 Polyethylene Glycol (Miralax) 17 gm DAILYPRN PRN ORAL Constipation 04/19/17 15:30 05/19/17 15:29 Sennosides (Senokot) 8.6 mg QHS ORAL 04/19/17 21:00 05/19/17 20:59 04/20/17 19:58 Tamsulosin HCl (Flomax) 0.4 mg DAILY ORAL 04/20/17 09:00 05/20/17 08:59 04/21/17 08:42 Temazepam (Restoril) 15 mg HSPRN PRN ORAL Insomnia 04/19/17 21:00 04/26/17 20:59 ROWENA ALVA Apr 21, 2017 20:08
[2017-04-22 00:04] VITALS: BP 133/63
[2017-04-22 03:43] VITALS: BP 145/72
[2017-04-22 07:29] LABS: MEAN CORPUSCULAR HEMOGLOBIN 30.2 PG (27.0-31.0); MEAN CORPUSCULAR HGB CONC 32.2 G/DL (32.0-36.0); MEAN CORPUSCULAR VOLUME 94 FL (80-99); MEAN PLATELET VOLUME 6.3 FL (6.5-10.1); PLATELET COUNT 223 K/UL (150-450); RED BLOOD COUNT 3.93 M/UL (4.70-6.10); RED CELL DISTRIBUTION WIDTH 11.8 % (11.6-14.8); WHITE BLOOD COUNT 3.1 K/UL (4.8-10.8)
[2017-04-22 07:58] LABS: ALANINE AMINOTRANSFERASE 14 U/L (3-41); ANION GAP 10 (5-15); ASPARTATE AMINO TRANSFERASE 13 U/L (5-40); CALCIUM 10.7 mg/dL (8.6-10.2); CARBON DIOXIDE 25 mEQ/L (20-30); CHLORIDE 106 mEQ/L (98-107); CREATININE 1.1 mg/dL (0.7-1.2); CRP QUANT < 0.3 mg/dL (< 0.5); GLOMERULAR FILTRATION RATE > 60 mL/min (>60); HEMOLYSIS 6; MAGNESIUM 1.9 mg/dL (1.7-2.5); PHOSPHORUS 2.9 mg/dL (2.5-4.8); POTASSIUM 4.3 mEQ/L (3.4-4.9); SODIUM 141 mEQ/L (135-145)
[2017-04-22 08:22] VITALS: BP 141/55
[2017-04-22 08:44] LABS: ERYTHROCYTE SEDIMENTATION RATE 56 MM/HR (0-20)
[2017-04-22] MEDS: Heparin 5000 units/ml inj SUBQ SCH (09:00)
[2017-04-22] MEDS: Tamsulosin 0.4mg cap ORAL SCH (09:34)
[2017-04-22] MEDS: Carvedilol 25mg Tab ORAL SCH (09:34)
[2017-04-22 10:38] LABS: BAND NEUTROPHILS % (MANUAL) 1 % (0-8); BASOPHILS % (MANUAL) 2 % (0-2); EOSINOPHILS % (MANUAL) 0 % (0-3); LYMPHOCYTES % (MANUAL) 50 % (20-45); NEUTROPHILS % (MANUAL) 40 % (45-75); PLATELET ESTIMATE ADEQUATE; PLATELET MORPHOLOGY NORMAL; TOTAL CELLS COUNTED 100
[2017-04-22 10:39] LABS: ACANTHOCYTES OCCASIONAL; ANISOCYTOSIS 1+
[2017-04-22 10:40] LABS: OVALOCYTES OCCASIONAL
[2017-04-22 12:31] VITALS: BP 148/77
[2017-04-22] MEDS ORDERED: NS 275ml ONE (12:54)
[2017-04-22] MEDS ORDERED: Tubing IV Secondary IV ONE (12:54)
--- NOTE | 2017-04-22 22:50 | Pulmonology Progress Note ---
Assessment/Plan Problems: (1) Dysuria (2) Cerebrovascular accident, old (3) BPH (benign prostatic hyperplasia) (4) Liver cirrhosis Assessment/Plan continue abx check cultures urology consult appreciated dc planning in progress check labs in am dc to nursign home today Subjective ROS Limited/Unobtainable: No Allergies: Coded Allergies: No Known Allergies (Unverified , 01/28/15) Objective Last 24 Hour Vital Signs Date Time Temp Pulse Resp B/P Pulse Ox O2 Delivery O2 Flow Rate FiO2 04/22/17 12:31 97.9 56 18 148/77 99 Room Air 04/22/17 10:20 61 18 Room Air 04/22/17 09:34 62 130/75 04/22/17 08:22 97.7 60 18 141/55 97 Room Air 04/22/17 03:43 97.2 57 20 145/72 99 Room Air 04/22/17 00:04 97.0 64 19 133/63 97 Room Air Intake and Output 04/21/17 04/22/17 19:00 07:00 Intake Total 980 ml Balance 980 ml Intake Oral 760 ml IV Total 220 ml # Bowel Movements 1 1 General Appearance: WD/WN HEENT: normocephalic, anicteric Respiratory/Chest: chest wall non-tender, lungs clear Cardiovascular: normal peripheral pulses, normal rate Abdomen: normal bowel sounds, soft, non tender Genitourinary: normal external genitalia Extremities: no cyanosis Microbiology Date/Time Source Procedure Growth Status 04/20/17 06:15 Indwelling Cath Urine Culture - Final NO GROWTH AFTER 48 HOURS Complete Laboratory Tests 04/22/17 05:00: Sodium Level 141, Potassium Level 4.3, Chloride Level 106, Carbon Dioxide Level 25, Anion Gap 10, Blood Urea Nitrogen 23, Creatinine 1.1, Estimat Glomerular Filtration Rate > 60, Glucose Level 83, Calcium Level 10.7H, Phosphorus Level 2.9, Magnesium Level 1.9, Total Bilirubin 0.4, Aspartate Amino Transf (AST/SGOT ) 13, Alanine Aminotransferase (ALT/SGPT) 14, Alkaline Phosphatase 59, C- Reactive Protein, Quantitative < 0.3, Total Protein 8.0, Albumin 4.1, Globulin 3.9, Albumin/Globulin Ratio 1.0 04/22/17 05:20: White Blood Count 3.1L, Red Blood Count 3.93L, Hemoglobin 11.9L, Hematocrit 36.9L, Mean Corpuscular Volume 94, Mean Corpuscular Hemoglobin 30.2, Mean Corpuscular Hemoglobin Concent 32.2, Red Cell Distribution Width 11.8, Platelet Count 223, Mean Platelet Volume 6.3L, Neutrophils (%) (Auto) , Lymphocytes (%) ( Auto) , Monocytes (%) (Auto) , Eosinophils (%) (Auto) , Basophils (%) (Auto) , Differential Total Cells Counted 100, Neutrophils % (Manual) 40L, Lymphocytes % (Manual) 50H, Monocytes % (Manual) 7, Eosinophils % (Manual) 0, Basophils % ( Manual) 2, Band Neutrophils 1, Platelet Estimate Adequate, Platelet Morphology Normal, Anisocytosis 1+, Ovalocytes Occasional, Acanthocytes Occasional, Erythrocyte Sedimentation Rate 56H ROWENA ALVA Apr 22, 2017 22:50
--- NOTE | 2017-04-23 15:29 | Discharge Summary ---
Discharge Summary Hospital Course Date of Admission Apr 19, 2017 at 14:30 Date of Discharge Apr 22, 2017 at 12:55 Admitting Diagnosis ALTER MENTAL STATUS/UTI HPI Donte Thompson is a 57 year old male who was admitted on Apr 19, 2017 at 14:30 for Altered Mental Status,Urinary Tract Infection Hospital Course [id number] Discharge Discharge Disposition Patient was discharged to SNF/Subacute Facility(03) Discharge Diagnoses: Aure Rendon NP Apr 23, 2017 15:29
--- NOTE | 2017-04-24 02:00 | Discharge Summary 2 SIG ---
DATE OF ADMISSION: 04/19/2017 DATE OF DISCHARGE: 04/22/2017 CONSULTANTS: 1. Americo Betancourt M.D. 2. Abhishek Dukes M.D. BRIEF HOSPITAL COURSE: The patient is a 57-year-old male with history of CVA, schizophrenia and is a shelter resident, was brought in by ambulance for evaluation of dysuria and hematoma. Nursing staff at the facility was unable to put a Mccoy catheter in and the patient was unable to urinate. He has a known medical history BPH, hyperlipidemia, heart failure, and cardiomyopathy. On evaluation at ED, Mccoy catheter insertion was attempted, however, was unsuccessful. He was able to void and urinalysis showed urine WBC 10 to 15 with 3+ leukocyte esterase, RBC 0 to 2, and positive nitrate. He was started on empiric antibiotics. EKG done showed normal sinus rhythm. He was then admitted to medical floor for evaluation of dysuria and BPH. He was started empirically on cefepime by Infectious Disease specialist and was followed by Urologist Dr. Betancourt who was also unable to pass a 14 and a 16-[place]at[place] coude catheter into the patient's bladder due to resistance in the bulbar urethra consistent with possible stricture. Multiple attempts at passing a filiform were also met with resistance in the same area and appeared that patient had urethral structure, which is likely longstanding and has resulted in a urinary tract infection, and incontinence. Next option would include cystoscopy or suprapubic catheter. The patient is able to urinate and there is no evidence of massive retention or urinary insufficiency from the process. He was then recommended the use of condom catheter and to continue antibiotics. Once discharge arrangements for outpatient cystoscopy can be done to evaluate the stricture and would need consent from patient's power of personal injury attorney. Urine culture showed growth of E. coli. Cefepime was discontinued and was switched to ceftriaxone. The patient was then cleared for discharge back to shelter to continue ceftriaxone intravenous piggyback for 10 more days. FINAL DIAGNOSES: 1. Complicated urinary tract infection with Escherichia coli. 2. Benign prostatic hypertrophy with obstructive uropathy. 3. Old cerebrovascular accident. 4. Liver cirrhosis. 5. Schizophrenia. 6. Hypercalcemia. 7. Chronic obstructive pulmonary disease. DISPOSITION: Discharge patient back to [facility]. DISCHARGE MEDICATIONS: Refer to medication list. Darrian Barr M.D. I have been assigned to dictate discharge summary on this account and I was not involved in the patient's management. Aure Rendon N.P. DR: MARCELINO JOB#: [id number] CC: ROCIO
== END 2017-04-22 12:55 | DRG 690 ==
LOC: EDBD 13:56 → EMR 14:17 → 4W 14:30 → EDBEDREQ 16:18
DX: N39.0 Urinary tract infection, site not specified (principal); I42.9 Cardiomyopathy, unspecified; I50.9 Heart failure, unspecified; N13.39 Other hydronephrosis; E83.52 Hypercalcemia; K74.60 Unspecified cirrhosis of liver; R32 Unspecified urinary incontinence; Z86.73 Personal history of transient ischemic attack (TIA), and cerebral infarction without residual deficits; E78.5 Hyperlipidemia, unspecified; B96.20 Unspecified Escherichia coli [E. coli] as the cause of diseases classified elsewhere; N40.1 Benign prostatic hyperplasia with lower urinary tract symptoms; N13.8 Other obstructive and reflux uropathy; F20.9 Schizophrenia, unspecified; J44.9 Chronic obstructive pulmonary disease, unspecified; I10 Essential (primary) hypertension; N35.8 Other urethral stricture
CPT/HCPCS: 36415; 51702; 71010; 76775; 80053; 81003; 82553; 83735; 84100; 85007; 85025; 85651; 86140; 87081; 87086; 87181; 93005; 94664